=== PATIENT | female | born 1990 | race Caucasian/White ===

== ENCOUNTER → 2019-06-04 12:44 | Outpatient (BNVA) | payer MEDICAID, SELFPAY | PROVIDERS: Family Provider Family Medicine; PCP Family Medicine; Visit Provider Psychiatry & Neurology Psychiatry | DX: F33.3 Major depressive disorder, recurrent, severe with psychotic symptoms (principal); F43.12 Post-traumatic stress disorder, chronic; F12.20 Cannabis dependence, uncomplicated | CPT/HCPCS: 99214; 99215 ==

== ENCOUNTER → 2019-06-07 13:25 | Outpatient (BNVA) | payer MEDICAID, SELFPAY | PROVIDERS: Family Provider Family Medicine; PCP Family Medicine; Visit Provider Nurse Practitioner Family | DX: L98.9 Disorder of the skin and subcutaneous tissue, unspecified (principal); R53.83 Other fatigue; R52 Pain, unspecified | CPT/HCPCS: 81003; 85007; 85027; 87804 ==

== ENCOUNTER → 2020-04-01 16:51 | Outpatient (BNVA) | payer MEDICAID, SELFPAY | PROVIDERS: Family Provider Family Medicine; PCP Family Medicine; Visit Provider Nurse Practitioner Family | DX: Z20.828 Contact with and (suspected) exposure to other viral communicable diseases (principal) | CPT/HCPCS: 87635 ==

== ENCOUNTER 2020-09-27 11:10 | Emergency (ER) | payer BC, MEDICAID, SELFPAY ==
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
[2020-09-27 11:48] VITALS: BP 155/90; PULSE 75; RESP 18; TEMP 36.3; O2SAT 100; BMI 19.2
[2020-09-27 11:53] VITALS: BP 155/90; PULSE 86; RESP 16; O2SAT 100
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
== END 2020-09-27 12:38 | disposition home or self-care (01) ==
PROVIDERS: Emergency Provider Physician Assistant
DX: S60.221A Contusion of right hand, initial encounter (principal); Z79.82 Long term (current) use of aspirin; F17.210 Nicotine dependence, cigarettes, uncomplicated; W22.8XXA Striking against or struck by other objects, initial encounter
CPT/HCPCS: 29125; 73090; 73110; 73130; 99283

== ENCOUNTER 2020-12-29 18:57 | Emergency (ER) | payer BC, MEDICAID, SELFPAY ==
[2020-12-29 19:06] VITALS: BP 141/103; PULSE 121; RESP 17; TEMP 36.5; O2SAT 94
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
[2020-12-29] MEDS: ondansetron 2 mg/ML SDV 2 mL 4 MG IVP (20:14)
[2020-12-29 20:19] VITALS: PULSE 133; RESP 14; O2SAT 98
[2020-12-29 20:22] VITALS: BP 188/149; PULSE 130; RESP 18; O2SAT 98
[2020-12-29 20:23] VITALS: BP 182/135
[2020-12-29 20:33] VITALS: BP 168/127; PULSE 125; RESP 18; O2SAT 100
--- NOTE | 2020-12-29 20:43 | PC.NURSE ---
In room with patient. She is talking and sats are 99. She is starting to open her eyes. Responds to voice.
--- NOTE | 2020-12-29 21:02 | PC.NURSE ---
Pt significant other is in the room and patient is wake from her sedation. She is drinking small sips of water.
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
[2020-12-29 21:20] VITALS: BP 156/125; PULSE 115; RESP 14; O2SAT 100
--- NOTE | 2021-01-02 09:44 | DCPLANNER ---
manager urology had message to schedule a follow up appointment for patient with ortho. manager urology called the ortho clinic, spoke with Ellen, gave clinic patients information. manager urology was told that patients information would be printed and reviewed. Clinic will call patient with appointment information.
--- NOTE | 2021-01-03 15:29 | DCPLANNER ---
Patient has a follow up appointment scheduled for Saturday, January 04, 2021 at 1:[address] Cain at ortho.
--- NOTE | 2021-01-05 12:06 | DCPLANNER ---
Patient had a follow up appointment scheduled for 01.04.21 with ortho - patient did attend appointment.
== END 2020-12-29 21:15 | disposition home or self-care (01) ==
PROVIDERS: Emergency Provider Family Medicine
DX: S53.125A Posterior dislocation of left ulnohumeral joint, initial encounter (principal); F17.200 Nicotine dependence, unspecified, uncomplicated; W19.XXXA Unspecified fall, initial encounter
CPT/HCPCS: 24600; 73070; 96374; 99284; J2405; J3490

== ENCOUNTER → 2023-08-28 10:20 | Outpatient (BNVA) | payer BC, MEDICAID, SELFPAY | PROVIDERS: Visit Provider Nurse Practitioner Family | DX: T78.40XA Allergy, unspecified, initial encounter (principal); L50.9 Urticaria, unspecified | CPT/HCPCS: 80053; 82785; 85025; 86001; 86003; 86008 ==

== ENCOUNTER → 2024-01-14 09:03 | Outpatient (BNVA) | payer BC, MEDICAID, SELFPAY | PROVIDERS: Visit Provider Nurse Practitioner Women's Health | DX: Z12.4 Encounter for screening for malignant neoplasm of cervix (principal) | CPT/HCPCS: 87491; 87591; 87624 ==

== ENCOUNTER → 2024-03-19 15:14 | Outpatient (BNVA) | payer BC, MEDICAID, SELFPAY | PROVIDERS: Visit Provider Clinical Nurse Specialist Adult Health | DX: J02.9 Acute pharyngitis, unspecified (principal) | CPT/HCPCS: 87880 ==